=== PATIENT | male | born 1950 | race African-American/Black ===

== ENCOUNTER 2020-05-05 15:07 | Inpatient (IN) ==
[2020-05-05 16:08] LABS: Basophils % 0.1 % (0.0-0.8); Eosinophils % 0.1 % (0.00-10.9); Hematocrit 30.3 VOL% (42.0-52.0); Hemoglobin 9.6 GM/DL (14.0-18.0); Immature Granulocytes % 0.6 %; Immature Granulocytes Absolute 0.05 #; Lymphocytes # 0.7 10*3/uL (1.4-4.0); Lymphocytes % 7.8 % (21.2-54.2); Mean Corpuscular HGB Conc 31.7 GM/DL (32-36); Mean Corpuscular Volume 99.3 FL (87-102); Mean Platelet Volume 12.2 FL (9.6-12.0); Neutrophils % 80.4 % (38.7-73.9); Platelet Count 146 T/CUMM (130-400); Red Blood Count 3.05 MC/CUMM (3.8-5.5); Red Cell Distribution Width 12.1 % (9.3-17.3); White Blood Count 8.5 T/CUMM (4-12)
[2020-05-05] MEDS ORDERED: SODIUM CHLORIDE 0.9% 1,000 ML IV STA ×2 (16:12→19:37)
[2020-05-05 16:30] LABS: Lactic Acid 1.1 MMOL/L (0.4-2.0)
[2020-05-05] MEDS ORDERED: ACETAMINOPHEN 500 MG TABLET PO STA (17:29)
[2020-05-05] MEDS ORDERED: PANTOPRAZOLE 40 MG VIAL IV STA (17:52)
[2020-05-05] MEDS ORDERED: ONDANSETRON 4 MG/2 ML VIAL IV STA (17:53)
[2020-05-05] MEDS ORDERED: PANTOPRAZOLE 40 MG VIAL IV ONE (17:53)
[2020-05-05] MEDS ORDERED: ONDANSETRON 4 MG/2 ML VIAL ONE (17:53)
[2020-05-05 19:19] LABS: INR 1.1; PT Patient Result 11.5 SECS (9.8-11.9)
[2020-05-05] MEDS ORDERED: cefTRIAXone 1,000 MG in SODIUM CHLORIDE 0.9% 100 ML IV STA (19:24)
[2020-05-05 19:25] LABS: Albumin 2.9 G/DL (3.4-5.0); Bilirubin,Total 0.7 MG/DL (0.2-1.0); Calcium 8.2 MG/DL (8.5-10.1); Osmolality,Calculated 290.7 MOS/KG (273-304); Potassium 4.8 MMOL/L (3.5-5.1); Total Protein 7.1 G/DL (6.4-8.3)
[2020-05-05 19:36] LABS: Ferritin 3770.9 ng/ml (26-388)
[2020-05-05 19:54] LABS: Amorphous Crystals,Urine Few /HPF (Few); Bilirubin,Urine Negative (Negative); Blood, Urine Moderate mg/dL (Negative); Glucose,Urine (UA) Negative (Negative); Hyaline Casts,Urine 4 /LPF (0-3); Ketones,Urine 20 mg/dL (Negative); Mucus,Urine Occasional /LPF (Occasional); Nitrite,Urine Negative (Negative); Protein,Urine 100 MG/DL; Squamous Epithelial Cell,Urine Occasional /HPF (0-10); Urine Appearance Slightly Hazy (Clear); Urine Color Yellow (Yellow); Urine Specific Gravity 1.019 (1.001-1.035); Urine Urobilinogen < 2.0 EU/DL (0.2-1.0)
[2020-05-05] MEDS ORDERED: ONDANSETRON 4 MG/2 ML VIAL IV PRN (20:10)
[2020-05-05] MEDS ORDERED: ZALEPLON 5 MG CAPSULE PO PRN (20:10)
[2020-05-05] MEDS ORDERED: DEXTROSE 50% 25 GM/50 ML VIAL IV PRN (20:10)
[2020-05-05] MEDS ORDERED: GLUCAGON 1 MG VIAL IM PRN (20:10)
[2020-05-05] MEDS ORDERED: SODIUM CHLORIDE 0.9% 1,000 ML IV PRN (20:20)
[2020-05-05] MEDS: SODIUM CHLORIDE 0.9% 1,000 ML IV SCH (22:09)
[2020-05-05] MEDS: FAMOTIDINE 20 MG TABLET PO SCH (22:09)
[2020-05-05] MEDS: ASCORBIC ACID 500 MG TABLET PO SCH (22:09)
[2020-05-05 22:49] LABS: Hematocrit 25.9 VOL% (42.0-52.0); Hemoglobin 8.3 GM/DL (14.0-18.0); Immature Granulocytes % 0.5 %; Immature Granulocytes Absolute 0.03 #; Lymphocytes # 1.1 10*3/uL (1.4-4.0); Lymphocytes % 18.4 % (21.2-54.2); Mean Corpuscular Volume 97.7 FL (87-102); Mean Platelet Volume 10.9 FL (9.6-12.0); Monocytes % 13.6 % (1.7-12.7); Neutrophils % 67.5 % (38.7-73.9); Platelet Count 205 T/CUMM (130-400); Red Blood Count 2.65 MC/CUMM (3.8-5.5); White Blood Count 6.1 T/CUMM (4-12)
[2020-05-05 23:18] LABS: Folate > 24.0 NG/ML (5.38-24.0); Vitamin B12 > 2000 PG/ML (211-911)
[2020-05-05 23:27] LABS: Ferritin 3718.7 ng/ml (26-388)
[2020-05-06 00:14] LABS: Sedimentation Rate-Westergren 124 MM/HR (0-20)
[2020-05-06] MEDS: ALBUTEROL INHALER 18 GM INH SCH ×4 (02:05→19:10)
[2020-05-06 06:13] LABS: Basophils % 0.5 % (0.0-0.8); Eosinophils % 0.7 % (0.00-10.9); Hematocrit 25.9 VOL% (42.0-52.0); Hemoglobin 8.1 GM/DL (14.0-18.0); Immature Granulocytes % 0.7 %; Immature Granulocytes Absolute 0.04 #; Lymphocytes # 1.2 10*3/uL (1.4-4.0); Lymphocytes % 19.7 % (21.2-54.2); Mean Corpuscular HGB Conc 31.3 GM/DL (32-36); Mean Platelet Volume 11.9 FL (9.6-12.0); Monocytes % 16.2 % (1.7-12.7); Neutrophils % 62.2 % (38.7-73.9); Platelet Count 226 T/CUMM (130-400); Red Blood Count 2.59 MC/CUMM (3.8-5.5); White Blood Count 5.9 T/CUMM (4-12)
[2020-05-06 06:15] LABS: Hematocrit 25.7 VOL% (42.0-52.0); Hemoglobin 8.3 GM/DL (14.0-18.0)
[2020-05-06 07:00] LABS: Albumin 2.7 G/DL (3.4-5.0); Bilirubin,Total 0.9 MG/DL (0.2-1.0); Calcium 8.5 MG/DL (8.5-10.1); Ferritin 3744.3 ng/ml (26-388); Osmolality,Calculated 292.5 MOS/KG (273-304); Potassium 4.4 MMOL/L (3.5-5.1); Total Protein 6.8 G/DL (6.4-8.3)
[2020-05-06] MEDS: CHOLECALCIFEROL 1,000 UNIT TABLET PO SCH (08:42)
[2020-05-06] MEDS: CETIRIZINE 10 MG TABLET PO SCH (08:42)
[2020-05-06] MEDS: FAMOTIDINE 20 MG TABLET PO SCH ×2 (08:42→21:24)
[2020-05-06] MEDS: ASCORBIC ACID 500 MG TABLET PO SCH ×2 (08:42→21:24)
[2020-05-06] MEDS: ZINC GLUCONATE 50 MG TABLET PO SCH (08:42)
[2020-05-06] MEDS: DEXAMETHASONE 4 MG/1 ML VIAL IV SCH (08:42)
[2020-05-06] MEDS: PANTOPRAZOLE 40 MG TABLET PO SCH (08:42)
[2020-05-06 08:58] LABS: Hemoglobin A1 (Alkaline) 97.1 % (96.5-98.5); Hemoglobin A2 (Alkaline) 2.9 % (1.5-3.5)
[2020-05-06 10:52] LABS: Hematocrit 26.4 VOL% (42.0-52.0); Hemoglobin 8.1 GM/DL (14.0-18.0)
[2020-05-06] MEDS: SODIUM CHLORIDE 0.9% 1,000 ML IV SCH (11:30)
[2020-05-06] MEDS: ACETAMINOPHEN 325 MG TABLET PO PRN (13:42)
[2020-05-06] MEDS ORDERED: SODIUM CHLORIDE 0.9% 1,000 ML IV PRN (14:43)
[2020-05-06] MEDS ORDERED: REMDESIVIR 200 MG in SODIUM CHLORIDE 0.9% 210 ML IV ONE (15:00)
[2020-05-06] MEDS ORDERED: ROSUVASTATIN 10 MG TABLET PO SCH (17:00)
[2020-05-06 17:41] LABS: Hemoglobin 8.6 GM/DL (14.0-18.0)
[2020-05-06] MEDS: cefTRIAXone 1,000 MG in SYRINGE 1 EACH IV SCH (21:23)
[2020-05-06] MEDS: MAGNESIUM OXIDE 400 MG TABLET PO SCH (21:24)
[2020-05-06] MEDS: OMEGA 3 ACID ETHYL ESTERS 1 GM CAPSULE PO SCH (21:24)
[2020-05-07] MEDS: SODIUM CHLORIDE 0.9% 1,000 ML IV SCH ×3 (00:25→17:28)
[2020-05-07] MEDS: ALBUTEROL INHALER 18 GM INH SCH ×4 (01:00→19:39)
[2020-05-07 05:06] LABS: Basophils % 0.2 % (0.0-0.8); Hematocrit 26.7 VOL% (42.0-52.0); Hemoglobin 8.4 GM/DL (14.0-18.0); Immature Granulocytes % 0.7 %; Immature Granulocytes Absolute 0.04 #; Lymphocytes # 0.8 10*3/uL (1.4-4.0); Lymphocytes % 13.8 % (21.2-54.2); Mean Corpuscular HGB Conc 31.5 GM/DL (32-36); Mean Corpuscular Volume 100.4 FL (87-102); Mean Platelet Volume 11.7 FL (9.6-12.0); Monocytes % 16.7 % (1.7-12.7); Neutrophils % 68.6 % (38.7-73.9); Platelet Count 245 T/CUMM (130-400); Red Blood Count 2.66 MC/CUMM (3.8-5.5); Red Cell Distribution Width 11.9 % (9.3-17.3); White Blood Count 5.6 T/CUMM (4-12)
[2020-05-07 05:34] LABS: Albumin 2.6 G/DL (3.4-5.0); Bilirubin,Total 0.6 MG/DL (0.2-1.0); Calcium 8.4 MG/DL (8.5-10.1); Osmolality,Calculated 290.4 MOS/KG (273-304); Potassium 5.5 MMOL/L (3.5-5.1); Total Protein 6.8 G/DL (6.4-8.3)
[2020-05-07 06:14] LABS: Anisocytosis 1+; Band Neutrophils 4 % (0-10); Lymphocytes 11 % (20-55); Macrocytosis 1+; Platelet Estimate Normal; Segmented Neutrophils 69 % (50-85); Total Cells Counted 100
[2020-05-07 06:15] LABS: Burr Cells Few
[2020-05-07] MEDS: MAGNESIUM OXIDE 400 MG TABLET PO SCH ×2 (09:10→21:26)
[2020-05-07] MEDS: CETIRIZINE 10 MG TABLET PO SCH (09:11)
[2020-05-07] MEDS: ACETAMINOPHEN 325 MG TABLET PO PRN ×2 (09:12→18:06)
[2020-05-07] MEDS: ASCORBIC ACID 500 MG TABLET PO SCH ×2 (09:12→21:26)
[2020-05-07] MEDS: FAMOTIDINE 20 MG TABLET PO SCH ×2 (09:13→21:26)
[2020-05-07] MEDS: CHOLECALCIFEROL 1,000 UNIT TABLET PO SCH (09:13)
[2020-05-07] MEDS: ZINC GLUCONATE 50 MG TABLET PO SCH (09:13)
[2020-05-07] MEDS: OMEGA 3 ACID ETHYL ESTERS 1 GM CAPSULE PO SCH ×2 (09:14→21:26)
[2020-05-07] MEDS: DEXAMETHASONE 4 MG/1 ML VIAL IV SCH (09:14)
[2020-05-07] MEDS: MULTIVITAMIN (CENTRUM) TABLET PO SCH (09:14)
[2020-05-07] MEDS: PANTOPRAZOLE 40 MG TABLET PO SCH (09:14)
[2020-05-07] MEDS: REMDESIVIR 100 MG in SODIUM CHLORIDE 0.9% 100 ML IV SCH (10:15)
[2020-05-07] MEDS: ENOXAPARIN 40 MG/0.4 ML SYRINGE SUBCUT SCH (11:20)
[2020-05-07] MEDS: MELATONIN 3 MG TABLET PO PRN (21:26)
[2020-05-07] MEDS: cefTRIAXone 1,000 MG in SYRINGE 1 EACH IV SCH (21:26)
[2020-05-08] MEDS: ALBUTEROL INHALER 18 GM INH SCH ×4 (00:24→18:30)
[2020-05-08 04:47] LABS: Basophils % 0.2 % (0.0-0.8); Hematocrit 24.6 VOL% (42.0-52.0); Hemoglobin 7.7 GM/DL (14.0-18.0); Immature Granulocytes % 0.6 %; Immature Granulocytes Absolute 0.03 #; Lymphocytes # 0.9 10*3/uL (1.4-4.0); Lymphocytes % 17.4 % (21.2-54.2); Mean Corpuscular HGB Conc 31.3 GM/DL (32-36); Mean Corpuscular Volume 100.4 FL (87-102); Mean Platelet Volume 11.4 FL (9.6-12.0); Monocytes % 14.6 % (1.7-12.7); Neutrophils % 67.2 % (38.7-73.9); Platelet Count 287 T/CUMM (130-400); Red Blood Count 2.45 MC/CUMM (3.8-5.5); White Blood Count 5.1 T/CUMM (4-12)
[2020-05-08 05:03] LABS: Albumin 2.5 G/DL (3.4-5.0); Bilirubin,Total 0.6 MG/DL (0.2-1.0); Calcium 8.3 MG/DL (8.5-10.1); Osmolality,Calculated 291.1 MOS/KG (273-304); Potassium 4.8 MMOL/L (3.5-5.1); Total Protein 6.5 G/DL (6.4-8.3)
[2020-05-08 05:56] LABS: Hypochromasia Slight; Macrocytosis Slight; Platelet Estimate Normal
[2020-05-08 05:58] LABS: Target Cells Slight
[2020-05-08] MEDS: ZINC GLUCONATE 50 MG TABLET PO SCH (09:55)
[2020-05-08] MEDS: MAGNESIUM OXIDE 400 MG TABLET PO SCH ×2 (09:55→21:08)
[2020-05-08] MEDS: ASCORBIC ACID 500 MG TABLET PO SCH ×2 (09:55→21:08)
[2020-05-08] MEDS: MULTIVITAMIN (CENTRUM) TABLET PO SCH (09:55)
[2020-05-08] MEDS: FAMOTIDINE 20 MG TABLET PO SCH ×2 (09:55→21:08)
[2020-05-08] MEDS: DEXAMETHASONE 4 MG/1 ML VIAL IV SCH (09:55)
[2020-05-08] MEDS: CHOLECALCIFEROL 1,000 UNIT TABLET PO SCH (09:55)
[2020-05-08] MEDS: OMEGA 3 ACID ETHYL ESTERS 1 GM CAPSULE PO SCH ×2 (09:55→21:08)
[2020-05-08] MEDS: CETIRIZINE 10 MG TABLET PO SCH (09:55)
[2020-05-08] MEDS: PANTOPRAZOLE 40 MG TABLET PO SCH (09:57)
[2020-05-08] MEDS: REMDESIVIR 100 MG in SODIUM CHLORIDE 0.9% 100 ML IV SCH (10:12)
[2020-05-08] MEDS: ENOXAPARIN 40 MG/0.4 ML SYRINGE SUBCUT SCH (11:49)
[2020-05-08] MEDS: cefTRIAXone 1,000 MG in SYRINGE 1 EACH IV SCH (21:08)
[2020-05-08] MEDS: MELATONIN 3 MG TABLET PO PRN (21:08)
[2020-05-08] MEDS: AZITHROMYCIN 250 MG TABLET PO SCH (21:08)
[2020-05-09 06:22] LABS: % Iron Saturation 48.3 % (18-50)
[2020-05-09] MEDS: REMDESIVIR 100 MG in SODIUM CHLORIDE 0.9% 100 ML IV SCH (10:32)
[2020-05-09] MEDS: ASCORBIC ACID 500 MG TABLET PO SCH ×2 (10:33→21:00)
[2020-05-09] MEDS: DEXAMETHASONE 4 MG/1 ML VIAL IV SCH (10:33)
[2020-05-09] MEDS: PANTOPRAZOLE 40 MG TABLET PO SCH (10:33)
[2020-05-09] MEDS: FAMOTIDINE 20 MG TABLET PO SCH ×2 (10:33→21:01)
[2020-05-09] MEDS: MULTIVITAMIN (CENTRUM) TABLET PO SCH (10:33)
[2020-05-09] MEDS: OMEGA 3 ACID ETHYL ESTERS 1 GM CAPSULE PO SCH ×2 (10:33→21:00)
[2020-05-09] MEDS: ZINC GLUCONATE 50 MG TABLET PO SCH (10:34)
[2020-05-09] MEDS: ALBUTEROL INHALER 18 GM INH SCH ×4 (10:34→21:07)
[2020-05-09] MEDS: MAGNESIUM OXIDE 400 MG TABLET PO SCH ×2 (10:34→21:01)
[2020-05-09] MEDS: CHOLECALCIFEROL 1,000 UNIT TABLET PO SCH (10:34)
[2020-05-09] MEDS: CETIRIZINE 10 MG TABLET PO SCH (10:34)
[2020-05-09 12:58] LABS: Basophils % 0.1 % (0.0-0.8); Eosinophils # 0.1 10*3/uL (0.0-0.87); Eosinophils % 1.2 % (0.00-10.9); Hematocrit 26.7 VOL% (42.0-52.0); Hemoglobin 8.3 GM/DL (14.0-18.0); Immature Granulocytes % 1.1 %; Lymphocytes # 1.3 10*3/uL (1.4-4.0); Lymphocytes % 13.8 % (21.2-54.2); Mean Corpuscular HGB Conc 31.1 GM/DL (32-36); Mean Corpuscular Volume 100.4 FL (87-102); Mean Platelet Volume 11.6 FL (9.6-12.0); Neutrophils % 75.8 % (38.7-73.9); Platelet Count 275 T/CUMM (130-400); Red Blood Count 2.66 MC/CUMM (3.8-5.5); Red Cell Distribution Width 12.1 % (9.3-17.3); White Blood Count 9.4 T/CUMM (4-12)
[2020-05-09 13:12] LABS: Calcium 8.4 MG/DL (8.5-10.1); Osmolality,Calculated 289.3 MOS/KG (273-304); Potassium 4.2 MMOL/L (3.5-5.1)
[2020-05-09 18:00] LABS: Eosinophils 2 % (0-10); Hypochromasia 1+; Lymphocytes 13 % (20-55); Macrocytosis 1+; Platelet Estimate Normal; Segmented Neutrophils 81 % (50-85); Total Cells Counted 100
[2020-05-09 18:01] LABS: Reactive Lymphocytes Few
[2020-05-09] MEDS: cefTRIAXone 1,000 MG in SYRINGE 1 EACH IV SCH (21:00)
[2020-05-09] MEDS: AZITHROMYCIN 250 MG TABLET PO SCH (21:01)
[2020-05-10] MEDS: ALBUTEROL INHALER 18 GM INH SCH ×2 (00:24→08:41)
[2020-05-10 05:54] LABS: Basophils % 0.2 % (0.0-0.8); Eosinophils # 0.1 10*3/uL (0.0-0.87); Eosinophils % 0.5 % (0.00-10.9); Hematocrit 26.1 VOL% (42.0-52.0); Hemoglobin 8.4 GM/DL (14.0-18.0); Lymphocytes % 19.6 % (21.2-54.2); Mean Corpuscular HGB Conc 32.2 GM/DL (32-36); Mean Corpuscular Volume 97.8 FL (87-102); Mean Platelet Volume 11.3 FL (9.6-12.0); Monocytes % 13.4 % (1.7-12.7); Neutrophils % 65.3 % (38.7-73.9); Platelet Count 373 T/CUMM (130-400); Red Blood Count 2.67 MC/CUMM (3.8-5.5); Red Cell Distribution Width 11.9 % (9.3-17.3); White Blood Count 10.2 T/CUMM (4-12)
[2020-05-10 06:12] LABS: Albumin 2.6 G/DL (3.4-5.0); Bilirubin,Total 0.4 MG/DL (0.2-1.0); Calcium 8.6 MG/DL (8.5-10.1); Osmolality,Calculated 279.7 MOS/KG (273-304); Potassium 4.6 MMOL/L (3.5-5.1)
[2020-05-10 06:31] LABS: Hypochromasia 1+; Lymphocytes 20 % (20-55); Microcytosis 1+; Platelet Estimate Adequate; Segmented Neutrophils 73 % (50-85); Total Cells Counted 100
[2020-05-10] MEDS: DEXAMETHASONE 4 MG/1 ML VIAL IV SCH (08:40)
[2020-05-10] MEDS: OMEGA 3 ACID ETHYL ESTERS 1 GM CAPSULE PO SCH (08:40)
[2020-05-10] MEDS: FAMOTIDINE 20 MG TABLET PO SCH (08:41)
[2020-05-10] MEDS: CHOLECALCIFEROL 1,000 UNIT TABLET PO SCH (08:41)
[2020-05-10] MEDS: MAGNESIUM OXIDE 400 MG TABLET PO SCH (08:41)
[2020-05-10] MEDS: ASCORBIC ACID 500 MG TABLET PO SCH (08:41)
[2020-05-10] MEDS: MULTIVITAMIN (CENTRUM) TABLET PO SCH (08:41)
[2020-05-10] MEDS: CETIRIZINE 10 MG TABLET PO SCH (08:41)
[2020-05-10] MEDS: ZINC GLUCONATE 50 MG TABLET PO SCH (08:41)
[2020-05-10] MEDS: PANTOPRAZOLE 40 MG TABLET PO SCH (08:41)
[2020-05-10] MEDS: REMDESIVIR 100 MG in SODIUM CHLORIDE 0.9% 100 ML IV SCH (09:34)
[2020-05-10 11:49] VITALS: BP 123/73
== END 2020-05-10 12:30 | disposition home or self-care (01) | DRG 177 ==
LOC: EDUNIT# → EDBD → N.ED 15:07 → N.EDINP 20:21 → SUATTDRO 20:21 → N.2E 20:48
PROVIDERS: ADMIT Internal Medicine; ATTEND Internal Medicine